=== PATIENT | female | born 1975 | race Caucasian/White ===

== ENCOUNTER 2020-05-11 15:47 | Emergency (ER) | payer OTHER, SELFPAY ==
--- NOTE | ~2020-05-11 | CT_ITS ---
EXAMINATION: CT ABDOMEN AND PELVIS WITHOUT CONTRAST CLINICAL INFORMATION: Left-sided abdominal pain COMPARISON: None TECHNIQUE: Multidetector volumetric imaging was performed from the superior aspect of the liver through the pubic symphysis. Sagittal and coronal reformatted images were obtained on the technologist's workstation. This CT examination was performed using dose optimization techniques as appropriate, variously including the following: *Automated exposure control *Adjustment of mA and/or kV according to patient size (this includes techniques or standardized protocols for targeted exams where dose is matched to indication/reason for exam; i.e. extremities or head) *Use of iterative reconstruction technique DLP: 707 mGy-cm FINDINGS: LUNG BASES: The visualized lung bases are unremarkable. Lineal scarring is present at the left lung base LIVER, GALLBLADDER, AND BILIARY TREE: The liver measures 19.5 cm in greatest cephalocaudad dimension but is and attenuation. A single granuloma is noted in the liver at the tip of the right lobe. No worrisome focal hepatic lesion or biliary ductal dilatation is present. The gallbladder is unremarkable with no evidence of radiopaque gallstones, gallbladder wall thickening, or obvious pericholecystic inflammatory changes. PANCREAS: Unremarkable. SPLEEN: Unremarkable. ADRENAL GLANDS: Unremarkable. KIDNEYS AND URETERS: The kidneys are normal in size, shape, and attenuation. No hydronephrosis, hydroureter, or calculi seen. No perinephric stranding. BLADDER: Unremarkable. GASTROINTESTINAL TRACT: The small and large bowel are unremarkable. The appendix is unremarkable. ABDOMINAL WALL: No significant hernia is appreciated. LYMPH NODES: Normal. VASCULAR: Unremarkable. PELVIC VISCERA: An anteverted uterus is present. An abnormal adnexal mass or free intraperitoneal air is not seen. OSSEOUS STRUCTURES: Unremarkable. CT/CT abdomen pelvis wo con IMPRESSION: 1. Mildly prominent liver size but with normal attenuation not suggesting fatty liver. 2. Solitary hepatic granuloma 3. A cause for the patient's acute left lower quadrant pain is not found.
[2020-05-11 16:00] VITALS: BP 119/65; PULSE 76; RESP 16; TEMP 36.8; O2SAT 96; BMI 36.3
[2020-05-11 16:34] LABS: Glucose Urine UA NEG (NEG); Leukocyte Esterase Urine 1+ (NEG); Nitrite Urine NEG (NEG); PH 6.5 (5.0-8.0); UACC Culture Trigger YES; Urine Blood 3+ (NEG); Urine Ketones 15 MG/DL (NEG); Urine Protein NEG (NEG-TRACE)
[2020-05-11 16:51] LABS: Appearance Urine HAZY; Color Urine YELLOW
[2020-05-11 17:35] LABS: MANUAL DIFF FLAG NO
[2020-05-11 17:36] LABS: Basophils Percent Auto 0.3 % (0-2); Eosinophils Absolute Auto 0.1 X10*3/uL (0.0-0.4); Eosinophils Percent Auto 1.1 % (0-4); Hematocrit 37.4 % (37-47); Imm Gran Abs Auto 0.03 X10*3/uL (0.00-0.03); Imm Gran Pct Auto 0.3 % (0.0-0.4); Lymphocytes Absolute Auto 4.2 X10*3/uL (1.2-4.9); Lymphocytes Percent Auto 38.1 % (20-40); Mean Corpuscular HGB Conc 32.1 g/dl (31.0-35.0); Mean Corpuscular Hemoglobin 31.6 pg (27.0-33.0); Mean Corpuscular Volume 98.4 fL (80-98); Mean Platelet Volume 10.5 fL (9.4-12.3); Monocytes Absolute Auto 0.9 X10*3/uL (0.1-1.2); Monocytes Percent Auto 8.1 % (2-11); Neutrophils Absolute Auto 5.8 X10*3/uL (2.0-8.3); Neutrophils Percent Auto 52.1 % (45-73); Platelet Count 271 X10*3/uL (160-400); Red Cell Distribution Width 13.4 % (11.0-16.0); White Blood Count 11.1 X10*3/uL (4.8-10.8)
[2020-05-11 17:44] LABS: RBC Urine 0-2 /HPF (0); Squamous Epithelial Cell Urine 3+ /LPF
[2020-05-11 17:56] LABS: Anion Gap 14 (12-20); Blood Urea Nitrogen 16 mg/dL (9-16); Calcium 8.7 mg/dL (8.4-10.2); Carbon Dioxide 25 mmol/L (22-29); Chloride 106 mmol/L (96-108); Creatinine Clr Calc Pharmacy 80.2; Estimated Glomerular Filt Rate > 60; Glucose Random 80 mg/dL (60-115); Lipase 21 U/L (8-78); Potassium 4.1 mmol/L (3.3-5.1); Sodium 141 mmol/L (135-145)
--- NOTE | 2020-05-11 19:35 | ED.ABDPAIN ---
HPI - Abdominal Pain General Chief Complaint: Abdominal Pain Stated Complaint: Abdominal Pain Time Seen by Provider: 05/11/20 19:32 Source: patient Mode of arrival: ambulatory Limitations: no limitations History of Present Illness HPI narrative: 44-year-old female came in for further assessment of abdominal pain/nausea/vomiting/diarrhea. 44-year-old female came in with abdominal pain started 3 days ago, pain is left side of the abdomen and radiates to left flank area, pain described as constant, dull aching pain, moderate 7/10, pain was associated with nausea and vomiting and nonbloody watery diarrhea which also resolved yesterday, but pain is persisting till today, patient feeling nauseous with decreased p.o. intake. Never had similar pain in the past patient have her menstruation now, not sexually active for the past 3 months declined chance of being . Patient decline urinary symptoms no urinary frequency, no dysuria. Related Data Previous Rx's Medication Instructions Recorded cefuroxime axetil 500 mg PO BID #14 tab 05/11/20 Allergies Allergy/AdvReac Type Severity Reaction Status Date / Time azithromycin [From ZITHROMAX] Allergy Unknown UNKNOWN Verified 05/11/20 22:51 latex [LATEX] Allergy Unknown RASH Verified 05/11/20 22:51 Review of Systems Review of Systems All other systems are reviewed and are negative Constitutional: Reports as per HPI and Reports no additional constitutional complaints Eyes: Reports as per HPI and Reports no additional eye complaints Reports system reviewed and no additional complaints, except as documented Cardiovascular: Reports as per HPI and Reports no additional cardiovascular complaints Respiratory: Reports as per HPI and Reports no additional respiratory complaints Gastrointestinal: Reports as per HPI and Reports no additional gastrointestinal complaints Genitourinary: Reports no additional female genitourinary complaints Musculoskeletal: Reports no additional musculoskeletal complaints Skin/Breast: Reports system reviewed and no additional complaints, except as docu Psychiatric: Reports no additional psychiatric complaints Endocrine: Reports no additional endocrine complaints Hematologic/Lymphatic: Reports no additional hematologic/lymphatic complaints Allergic/Immunologic: Reports no additional allergic/immunologic complaints Reports system reviewed and no additional complaints, except as documented and Reports Abnormal speech present Physical Exam Vital Signs: Vital Signs: Last Vital Signs Temp 97.8 F 05/11/20 20:20 Pulse 65 05/11/20 20:20 Resp 14 05/11/20 20:20 BP 127/61 05/11/20 20:20 Pulse Ox 97 05/11/20 20:20 Body Mass Index 36.3 Vital signs have been reviewed as appeared to be correct. Blood pressure normal. Heart rate normal. Respiration rate normal. Temperature normal. Oxygen saturation normal. Appearance: Alert. Oriented X3. No acute distress. Head: Normal external exam. Normocephalic. Atraumatic. No Doyle signs noted. No raccoon eyes noted Eyes: PERRLA. EOMI. Conjunctiva and sclera normal. Eyelids normal. ENT: TM's Normal. Pharynx normal. Uvula midline. Moist mucous membranes. No trismus noted. No drooling noted. No muffled voice noted. Neck: Normal inspection. Neck supple. FROM. No adenopathy. Thyroid Normal. No meningeal signs. No neck mass noted. CVS: Normal heart rate and rhythm. Heart sound normal. No murmurs noted. Pulses normal throughout. Respiratory: No respiratory distress. Painless inspiration. Breath sounds normal. No wheezes/rales/rhonchi noted. Chest nontender. No accessory muscle usage noted or decreased air movement noted. Abdomen: Soft, left-sided tenderness, no rebound tenderness, no guarding. Bowel sounds normal in all 4 quadrants. No distention noted. No organomegaly noted. No visible injury noted. Back: left CVA tenderness. Full range of motion noted. Skin: Skin warm and dry. Normal skin color. Normal skin turgor. No rashes/lesions/lacerations noted. Extremities: No lower extremity edema. Extremities exhibit normal range of motion. Extremities nontender. Neuro: Oriented X 3. No motor deficit. No sensory deficit. Reflexes normal. Course Course Course Narrative: Assessment and plan. 44-year-old female came in with 3 days of left flank pain, more detailed history there is urinary frequency, physical exam labs/UA/CT findings all consistent with left pyelonephritis. Will treat with 1 dose of ceftriaxone. Will send home with cefuroxime and drinking plenty of fluids. MDM - Abdominal Pain Lab Data Attestation: I reviewed the patient's lab results. Result diagrams: 05/11/20 17:29 05/11/20 17:29 Labs: Lab Results 05/11/20 05/11/20 05/11/20 Range/Units 16:17 16:17 17:29 WBC 11.1 H (4.8-10.8) X10*3/uL RBC 3.80 L (4.20-5.50) X10*6/uL Hgb 12.0 (12.0-16.0) g/dl Hct 37.4 (37-47) % MCV 98.4 H (80-98) fL MCH 31.6 (27.0-33.0) pg MCHC 32.1 (31.0-35.0) g/dl RDW 13.4 (11.0-16.0) % Plt Count 271 (160-400) X10*3/uL MPV 10.5 (9.4-12.3) fL Immature Gran % (Auto) 0.3 (0.0-0.4) % Neut % (Auto) 52.1 (45-73) % Lymph % (Auto) 38.1 (20-40) % [place] % (Auto) 8.1 (2-11) % Eos % (Auto) 1.1 (0-4) % Baso % (Auto) 0.3 (0-2) % Lymph # (Auto) 4.2 (1.2-4.9) X10*3/uL [place] # (Auto) 0.9 (0.1-1.2) X10*3/uL Eos # (Auto) 0.1 (0.0-0.4) X10*3/uL Baso # (Auto) 0.0 (0.0-0.2) X10*3/uL Abs Immat Gran (auto) 0.03 (0.00-0.03) X10*3/uL Absolute Neuts (auto) 5.8 (2.0-8.3) X10*3/uL Absolute Nucleated RBC 0.000 (0.0-0.012) X10*3/uL Nucleated RBC % (auto) 0.0 (0.0-0.2) /100WBC Hold Blue Top Sodium (135-145) mmol/L Potassium (3.3-5.1) mmol/L Chloride (96-108) mmol/L Carbon Dioxide (22-29) mmol/L Anion Gap (12-20) BUN (9-16) mg/dL Creatinine (0.5-1.4) mg/dL Estim Creat Clear Calc Estimated GFR Random Glucose (60-115) mg/dL Calcium (8.4-10.2) mg/dL Lipase (8-78) U/L Urine Color YELLOW Urine Appearance HAZY Urine pH 6.5 (5.0-8.0) Ur Specific [place] 1.020 (1.005-1.025) Urine Protein NEG (NEG-TRACE) MG/DL Urine Glucose (UA) NEG (NEG) MG/DL Urine Ketones 15 (NEG) MG/DL Urine Blood 3+ H (NEG) Urine Nitrite NEG (NEG) Ur Leukocyte Esterase 1+ H (NEG) Urine RBC 0-2 (0) /HPF Urine WBC 10-14 H (0-4) /HPF Ur Squamous Epith Cells 3+ /LPF Urine Bacteria NONE /LPF Urine Test NEGATIVE (NEGATIVE) 05/11/20 05/11/20 Range/Units 17:29 17:29 WBC (4.8-10.8) X10*3/uL RBC (4.20-5.50) X10*6/uL Hgb (12.0-16.0) g/dl Hct (37-47) % MCV (80-98) fL MCH (27.0-33.0) pg MCHC (31.0-35.0) g/dl RDW (11.0-16.0) % Plt Count (160-400) X10*3/uL MPV (9.4-12.3) fL Immature Gran % (Auto) (0.0-0.4) % Neut % (Auto) (45-73) % Lymph % (Auto) (20-40) % [place] % (Auto) (2-11) % Eos % (Auto) (0-4) % Baso % (Auto) (0-2) % Lymph # (Auto) (1.2-4.9) X10*3/uL [place] # (Auto) (0.1-1.2) X10*3/uL Eos # (Auto) (0.0-0.4) X10*3/uL Baso # (Auto) (0.0-0.2) X10*3/uL Abs Immat Gran (auto) (0.00-0.03) X10*3/uL Absolute Neuts (auto) (2.0-8.3) X10*3/uL Absolute Nucleated RBC (0.0-0.012) X10*3/uL Nucleated RBC % (auto) (0.0-0.2) /100WBC Hold Blue Top SEE NOTE Sodium 141 (135-145) mmol/L Potassium 4.1 (3.3-5.1) mmol/L Chloride 106 (96-108) mmol/L Carbon Dioxide 25 (22-29) mmol/L Anion Gap 14 (12-20) BUN 16 (9-16) mg/dL Creatinine 0.97 (0.5-1.4) mg/dL Estim Creat Clear Calc 80.2 Estimated GFR > 60 Random Glucose 80 (60-115) mg/dL Calcium 8.7 (8.4-10.2) mg/dL Lipase 21 (8-78) U/L Urine Color Urine Appearance Urine pH (5.0-8.0) Ur Specific [place] (1.005-1.025) Urine Protein (NEG-TRACE) MG/DL Urine Glucose (UA) (NEG) MG/DL Urine Ketones (NEG) MG/DL Urine Blood (NEG) Urine Nitrite (NEG) Ur Leukocyte Esterase (NEG) Urine RBC (0) /HPF Urine WBC (0-4) /HPF Ur Squamous Epith Cells /LPF Urine Bacteria /LPF Urine Test (NEGATIVE) Imaging Data CT scan - abdomen: Radiologist's impression: 1. Mildly prominent liver size but with normal attenuation not suggesting fatty liver. 2. Solitary hepatic granuloma 3. A cause for the patient's acute left lower quadrant pain is not found. Discharge Plan Discharge Clinical Impression: Pyelonephritis Patient Disposition: Home, Self-Care Instructions: Kidney Infection (ED) Prescriptions: New cefuroxime axetil 500 mg tablet 500 mg PO BID Qty: 14 RF: 0 Referrals: Aden Madrid MD [Primary Care Provider] - 2 days [facility] Social History Social History Alcohol intake: never Smoking Status: Never smoker Use of substances other than those prescribed or required for medical reasons: No Advance Directives: No Advance Directives Information Provided: No
[2020-05-11 19:49] LABS: UPreg QC Valid YES; Urine Pregnancy NEGATIVE (NEGATIVE)
[2020-05-11] MEDS: Ketorolac Tromethamine 15 MG/ML VIAL IV (20:13)
[2020-05-11] MEDS: ondansetron HCL 4 MG/2 ML VIAL IVPUSH (20:14)
[2020-05-11] MEDS: 0.9 % Sodium Chloride 1,000 ML 999 ML IVCONT (20:14)
[2020-05-11 20:20] VITALS: BP 127/61; PULSE 65; RESP 14; TEMP 36.6; O2SAT 97
[2020-05-12] MEDS: cefTRIAXone sodium 1 GM in 0.9 % Sodium Chloride 50 ML IV (00:12)
[2020-05-12 00:22] LABS: Lactic Acid 0.7 mmol/L (0.5-2.0)
[2020-05-12 00:31] VITALS: BP 120/69; PULSE 80; RESP 16; TEMP 36.9; O2SAT 96
[2020-05-12] MEDS: oxyCODONE HCl Immed Release 5 MG TABLET PO (00:38)
== END 2020-05-12 01:54 | disposition home or self-care (01) ==
PROVIDERS: Emergency Provider Emergency Medicine; PCP Internal Medicine
DX: N12 Tubulo-interstitial nephritis, not specified as acute or chronic (principal); R10.9 Unspecified abdominal pain; Z79.899 Other long term (current) drug therapy
CPT/HCPCS: 36415; 74176; 80048; 81001; 81003; 81025; 83605; 83690; 85025; 87040; 87086; 96361; 96365; 96375; 99284; J0696; J1885; J2405

== ENCOUNTER 2020-12-06 08:51 | Emergency (ER) | payer OTHER, SELFPAY ==
--- NOTE | 2020-12-06 09:04 | PC.NURSE ---
lungs - uer lobes diminished, walter lower lobes cta.
[2020-12-06 09:09] VITALS: BP 143/95; PULSE 85; RESP 18; TEMP 37.1; O2SAT 95; BMI 37.5
--- NOTE | 2020-12-06 09:16 | ED.GENADULT ---
HPI - General Adult General Chief complaint: Upper Respiratory Symptoms Stated complaint: SOB- sent from [employer] Time Seen by Provider: 12/06/20 09:16 Source: patient Limitations: no limitations History of Present Illness HPI narrative: Patient presents to the ER complaining of sore throat cough congestion sinus pressure nasal discharge. Patient has a longstanding history of sinus infections in the past. 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 Patient denies vomiting but had some slight nausea. Patient also concerned that she may have a UTI at this time with slight dysuria. Patient is fully vaccinated for COVID-19. Cough is nonproductive. Patient also has a history of chronic bronchitis in the past. Symptoms are [id number]. Patient states she has lost her voice over the past few days. Related Data Previous Rx's Medication Instructions Recorded cefuroxime axetil 500 mg tablet 500 mg PO BID #14 tab 05/11/20 amoxicillin 500 mg tablet 500 mg PO TID #30 tab 12/06/20 Allergies Allergy/AdvReac Type Severity Reaction Status Date / Time azithromycin [From ZITHROMAX] Allergy Unknown UNKNOWN Verified 05/11/20 22:51 latex [LATEX] Allergy Unknown RASH Verified 05/11/20 22:51 Review of Systems Constitutional: Constitutional: Denies anorexia, Reports body ache(s), Denies chills and Denies headache(s) ENT: Denies headache(s), Reports nasal congestion, Reports nasal discharge, Reports sore throat and Reports other (Sinus pressure discharge) Cardiovascular: Cardiovascular: Denies chest pain and Denies dyspnea Respiratory: Respiratory: Reports cough, Denies pain with cough and Denies dyspnea Genitourinary: Genitourinary: Reports dysuria, Denies pelvic pain and Denies flank pain Musculoskeletal: Musculoskeletal: Reports no additional musculoskeletal complaints Neurologic: Denies headache(s) [facility] Past Medical History Medical History No known health problems Social History Social History Alcohol intake: never Advance Directives: No Advance Directives Information Provided: Yes Patient : No Physical Exam Vital Signs: Vital Signs: Last Vital Signs Temp 98.7 F 12/06/20 09:09 Pulse 85 12/06/20 09:09 Resp 18 12/06/20 09:09 BP 143/95 H 12/06/20 09:09 Pulse Ox 95 12/06/20 09:09 Body Mass Index 37.5 vital signs have been reviewed as normal and appeared to be correct. Blood pressure normal. Heart rate normal. Respiration rate normal. Temperature normal. Oxygen saturation normal. Appearance: Alert. Oriented X3. No acute distress. Head: Normal external exam. Normocephalic. Atraumatic. No Doyle signs noted Eyes: PERRLA. EOMI. Conjunctiva and sclera normal. Eyelids normal. ENT: No evidence of peritonsillar abscess slight erythema no exudate uvula is midline mucosa is moist. Positive sinus tenderness positive nasal discharge and congestion Neck: Soft full range of motion, no JVD CVS: Heart regular rate and rhythm no murmurs and rubs Respiratory: Breath sounds are clear to auscultation bilaterally. No accessory muscle use noted. Abdomen: Soft nontender no rebound or guarding positive bowel sounds Back: No CVA tenderness. Full range of motion noted. Skin: Skin warm and dry. Normal skin color. Normal skin turgor. No rashes/lesions/lacerations noted. Extremities: No lower extremity edema. Extremities exhibit normal range of motion. Extremities nontender. Neuro: Oriented X 3. No motor deficit. No sensory deficit. Reflexes normal. Course Course Course Narrative: Sinusitis Acute pharyngitis Acute bronchitis UTI Viral syndrome UA pending symptoms consistent with sinusitis upper URI this time will treat accordingly UA is negative for UTI will treat sinusitis at this time. Medical Decision Making Lab Data Labs: Lab Results 12/06/20 12/06/20 Range/Units 09:29 09:29 Urine Color YELLOW Urine Appearance CLEAR Urine pH 8.0 (5.0-8.0) Ur Specific [place] 1.020 (1.005-1.025) Urine Protein NEG (NEG-TRACE) MG/DL Urine Glucose (UA) NEG (NEG) MG/DL Urine Ketones NEG (NEG) MG/DL Urine Blood NEG (NEG) Urine Nitrite NEG (NEG) Ur Leukocyte Esterase NEG (NEG) Urine Test NEGATIVE (NEGATIVE) Discharge Plan Discharge Clinical Impression: Sinusitis Patient Disposition: Home, Self-Care Instructions: Sinusitis (ED) Additional Instructions: UA is negative for UTI at this time Take amoxicillin as directed warm salt water gargles Return if symptoms worsen Prescriptions: New amoxicillin 500 mg tablet 500 mg PO TID Qty: 30 RF: 0 No Action cefuroxime axetil 500 mg tablet 500 mg PO BID Qty: 14 RF: 0 Stand Alone Forms: Work/School Release
[2020-12-06 09:45] LABS: Appearance Urine CLEAR; Color Urine YELLOW; Glucose Urine UA NEG (NEG); Leukocyte Esterase Urine NEG (NEG); Nitrite Urine NEG (NEG); Urine Blood NEG (NEG); Urine Ketones NEG (NEG); Urine Protein NEG (NEG-TRACE)
[2020-12-06 09:47] LABS: UPreg QC Valid YES; Urine Pregnancy NEGATIVE (NEGATIVE)
== END 2020-12-06 10:16 | disposition home or self-care (01) ==
PROVIDERS: Physician Assistant; Emergency Provider Emergency Medicine Emergency Medical Services
DX: J01.90 Acute sinusitis, unspecified (principal); R06.02 Shortness of breath; Z79.899 Other long term (current) drug therapy
CPT/HCPCS: 81003; 81025; 99283; 99284

== ENCOUNTER 2023-04-24 15:48 | Outpatient (AMB) | payer OTHER, SELFPAY ==
--- NOTE | 2023-04-24 15:49 | AM.OFFWIN_ITS ---
Intake Vital Signs 04/24/23 15:55 Height 5 ft 3 in BP 134/82 Blood Pressure Location Lt brachial Position Sitting Pulse 83 Pulse Source Pulse Oximeter Temp 98.0 F Temp Source Oral Pulse Oximetry (%) 100 Oxygen Delivery Method Room Air Intake Visit Reasons: EP UTI pos UA Intake Note: Pt is here lower back started yesterday Allergies azithromycin [From ZITHROMAX] Allergy (Unknown, Verified 04/24/23 15:54) UNKNOWN latex [LATEX] Allergy (Unknown, Verified 04/24/23 15:54) RASH HPI HPI Comments History of Present Illness Details 47 y/o female patient who presents to [facility] in clinic with c/o Urinary symptoms and lower back pain. Reports that symptoms started yesterday. She is currently on her period - denies vaginal problems. She has been taking Ibuprofen 800 mg with some mild relief. She has also been hydrating well with water. Denies fevers, chills, nausea or vomiting. [facility] Medical History No known health problems Social History Alcohol intake: never Physical Exam Vital Signs: Last Vital Signs Temp 98.0 F 04/24/23 15:55 Pulse 83 04/24/23 15:55 BP 134/82 04/24/23 15:55 Pulse Ox 100 04/24/23 15:55 Oxygen Delivery Method Room Air 04/24/23 15:55 Const General: no acute distress; No comfortable Nutritional Appearance: obese Orientation/consciousness: patient oriented x3 Other: Pelvic examination deferred - Pt has a Period General: Yes CVA tenderness bilateral Back/Spine/Pelvis Back: CVA tenderness Neuro General: patient oriented x3 and gait normal Psych Speech and movement: Clear speech present Affect: normal affect Assessment & Plan Assessment & Plan (1) Urinary tract infection symptoms: Code(s): R39.9 - Unspecified symptoms and signs involving the genitourinary system Plan: - Will Rx Ciproflaxin - Cystitis vs pyelonephritis. - Hydrate well with fluids - Rest - Ibuprofen for pain relief. Orders: Orders UA CC w/rflx Micro + Cult Today R39.9 - Unspecified symptoms and signs involving the genitourinary system Medications: New phenazopyridine 200 mg PO TID 2 days 6 tabs 0RF R39.9 - Unspecified symptoms and signs involving the genitourinary system ibuprofen 800 mg PO Q8H 30 tabs 0RF R39.9 - Unspecified symptoms and signs involving the genitourinary system ciprofloxacin HCl 500 mg PO BID 7 days 14 tabs 0RF R39.9 - Unspecified symptoms and signs involving the genitourinary system Coding Level of Care Code Est Pt Level 3 (09811) Diagnoses Urinary tract infection symptoms R39.9 Time Spent (min) 15
[2023-04-24 15:55] VITALS: BP 134/82; PULSE 83; TEMP 36.7; O2SAT 100
== END 2023-04-24 16:38 | disposition home or self-care (01) ==
PROVIDERS: Visit Provider Nurse Practitioner Family
DX: R39.9 Unspecified symptoms and signs involving the genitourinary system (principal)
CPT/HCPCS: 99213

== ENCOUNTER 2023-04-24 16:10 | Outpatient (REF) | payer OTHER, SELFPAY ==
[2023-04-25 11:26] LABS: Appearance Urine Cloudy; Glucose Urine UA Negative (Negative); Leukocyte Esterase Urine Trace (Negative); Nitrite Urine Negative (Negative); PH 6.5 (5.0-9.0); Specific Gravity - Urine 1.015 (1.005-1.025); UMIC TRIGGER UACC YES; Urine Blood Large (3+) (Negative); Urine Ketones Negative (Negative); Urine Protein 100 (2+) mg/dL (Neg-Trace)
[2023-04-25 11:27] LABS: Color Urine RED
[2023-04-25 11:40] LABS: Bacteria Urine Trace (None Seen); Hyaline Casts Urine 0-2 /LPF (0-2); RBC Urine >20 /HPF (0-2); Squamous Epithelial Cell Urine 0-2 /HPF (0-2); WBC Urine 0-5 /HPF (0-5)
== END 2023-04-24 16:11 | disposition home or self-care (01) ==
LOC: HO.LAB 16:10
PROVIDERS: Visit Provider Nurse Practitioner Family
DX: R39.9 Unspecified symptoms and signs involving the genitourinary system (principal)
CPT/HCPCS: 81001

== ENCOUNTER 2023-06-30 08:09 | Outpatient (AMB) | payer OTHER, SELFPAY ==
[2023-06-30 08:20] VITALS: BP 130/80; PULSE 82; TEMP 36.7; O2SAT 95; BMI 42.0
--- NOTE | 2023-06-30 08:20 | AM.OFFWIN_ITS ---
Intake Vital Signs 06/30/23 08:20 Height 5 ft 3 in Weight 237 lb BMI 42.0 BP 130/80 Blood Pressure Location Rt brachial Position Sitting Pulse 82 Pulse Source Pulse Oximeter Temp 98.0 F Temp Source Oral Pulse Oximetry (%) 95 Oxygen Delivery Method Room Air Intake Visit Reasons: EST/cough/sob (lobby masked) Intake Note: pt is here for bad cough and difficulty breathing, right eye with itchiness and goopy requesing Covd, rsv, and flu swab Patient Tobacco Use Status: Never used Tobacco Allergies azithromycin [From ZITHROMAX] Allergy (Unknown, Verified 06/30/23 08:33) UNKNOWN latex [LATEX] Allergy (Unknown, Verified 06/30/23 08:33) RASH Medication List - Last Reconciled 06/30/23 by JACIEL Early albuterol sulfate 90 mcg/actuation inhalation biotin 5 mg PO DAILY cetirizine (Zyrtec) 10 mg PO DAILY PRN Do you need a note to return to daycare/school/sports/work: Yes HPI HPI Comments History of Present Illness Details Is a patient is a 40-year-old female in today for sick visit. She has a past medical history significant for asthma and seasonal allergies. She states that for the past 2 days she has developed symptoms of chest tightness, low-grade fever, cough, headache, sore throat. 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 Denies chest pain, shortness a breath, numbness, nausea, vomiting. Patient also reports she feels like her right eye is tearing up frequently. Patient has used her albuterol inhaler with minimal relief. Has not tried any other medication at this time. [facility] Medical History No known health problems Social History Alcohol intake: never Patient Tobacco Use Status: Never used Tobacco Review of Systems Const All systems reviewed & are unremarkable except as noted in HPI and below Physical Exam Vital Signs: Last Vital Signs Temp 98.0 F 06/30/23 08:20 Pulse 82 06/30/23 08:20 BP 130/80 06/30/23 08:20 Pulse Ox 95 06/30/23 08:20 Oxygen Delivery Method Room Air 06/30/23 08:20 BMI result Body Mass Index 42.0 Const Other: Appearance: Alert.? Oriented X3.? No acute distress.? Head: Normocephalic. Eyes: Pupils equal, round and reactive to light.?NO discharge or erythema. ENT: Pharynx erythema, + cobblestoned. TM intact and pearly gil. Neck: Normal inspection.? Neck supple.?Full ROM. CVS: Normal heart rate and rhythm.? Pulses normal.? Respiratory: No respiratory distress.? Bilateral wheeze upper lobes. No rhonchi. No crackles. Neuro: Oriented X 3.? Office Procedures Nebulizer Treatment Nebulizer Treatment [id number] RX initial, or Nebulizer Subsequent Treatment Office Meds ipratropium 0.5 mg-albuterol 3 mg (2.5 mg base)/3 mL nebulization soln Performing Provider: JACIEL Early Performing Location: [facility] Administered by: JACIEL Early on 06/30/23 08:49 Dose Route Admin Location Dispensed Lot Number Expiration Date [place] [employer] 3 mL inhalation 3 mL [id number] 11/16/24 25924-859-57 [email or web address] Assessment & Plan Assessment & Plan (1) Upper respiratory infection: Comment: Obtained URI swab in office. Patient given in office nebulizer treatment with good effect. Patient will be given prednisone and benzonatate. Patient should rest and stay hydrated over the next couple of days. Will call patient with results. Patient has been educated on signs of worsening symptoms when to report to the walk-in or when to present to the ED. Code(s): J06.9 - Acute upper respiratory infection, unspecified Qualifiers: URI type: unspecified URI Qualified Code(s): J06.9 - Acute upper respiratory infection, unspecified Plan: Take your medications as prescribed. If you were prescribed antibiotics today, it is important that you take your medication to their entirety, do not skip any doses, do not finish them early. Follow-up with your primary care provider this week. Return to the emergency department with new or worsening symptoms. Such as fevers, chills, chest pain, shortness of breath, nausea, vomiting, dizziness, headache, vision changes, lethargy In case of emergency call 911 Plan follow up with pcp. Orders: Orders SARS-CoV2/FLU/RSV Today J06.9 - Acute upper respiratory infection, unspecified AMB Nebulizer Treatment Today R07.89 - Other chest pain Medications: New prednisone 40 mg (2 x 20 mg) PO DAILY 10 tabs 0RF benzonatate 200 mg PO BID PRN 20 caps 0RF cough Coding Level of Care Code Est Pt Level 3 (21024) Diagnoses Upper respiratory tract infection, unspecified type J06.9 URI type: unspecified URI CPT Codes Nebulizer Treatment - Nebulizer Treatment, initial or subsequent: 13571- Nebulizer/MDI RX initial, or Nebulizer Subsequent Treatment ([id number]) Time Spent (min) 26
== END 2023-06-30 08:55 | disposition home or self-care (01) ==
PROVIDERS: Visit Provider Nurse Practitioner Primary Care
DX: J06.9 Acute upper respiratory infection, unspecified (principal); R07.89 Other chest pain
CPT/HCPCS: 94640; 99213; J7620

== ENCOUNTER 2023-06-30 11:41 | Outpatient (REF) | payer OTHER, SELFPAY ==
[2023-06-30 12:27] LABS: Influenza A PCR NEGATIVE (Negative); Influenza B PCR NEGATIVE (Negative); Resp Syncy Virus RNA Qual PCR NEGATIVE (Negative); SARS COV2 PCR INHOUSE NEGATIVE (Negative)
== END 2023-06-30 11:42 | disposition home or self-care (01) ==
LOC: HO.LNP 11:41
PROVIDERS: Visit Provider Nurse Practitioner Primary Care
DX: J06.9 Acute upper respiratory infection, unspecified (principal)
CPT/HCPCS: 0241U